=== PATIENT | male | born 1975 | race Caucasian/White ===

== ENCOUNTER 2017-01-27 21:35 | Emergency (ER) | payer SELFPAY ==
[~2017-01-27] VITALS: Ht 182.9 cm; Wt 77.1 kg
[2017-01-27] MEDS ORDERED: KEPPRA XR500 MG ORAL (21:53)
[2017-01-27] MEDS ORDERED: KLONOPIN1 MG ORAL (21:53)
[2017-01-27] MEDS ORDERED: BUPROPION XL300 MG ORAL (21:53)
[2017-01-27 22:00] VITALS: BP 143/82
[2017-01-27] MEDS ORDERED: Acetaminophen 500mg (ES) tab ORAL ONE (22:30)
[2017-01-27] MEDS ORDERED: Bacitracin Oint UD TOPIC ONE (22:30)
[2017-01-27 23:40] VITALS: BP 132/77
[2017-01-27 23:42] VITALS: BP 132/77
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
--- NOTE | 2017-01-28 10:12 | Diagnostic Imaging Report ---
Indication: Left leg pain Technique: XRAY LEG LOWER TIB/FIB 2V LEFT Comparison: None Findings: There is no acute fracture or dislocation. Bone mineralization is normal. Soft tissues are grossly unremarkable. Probable bone islands are noted of the distal tibia and fibula. Impression: No acute osseous abnormality.
== END 2017-01-27 23:42 | disposition home or self-care (01) ==
LOC: EDBD 22:25 → EMR 22:25
DX: M79.605 Pain in left leg (principal)
CPT/HCPCS: 99283